=== PATIENT | male | born 1965 | race African-American/Black ===

== ENCOUNTER 2018-08-18 09:28 | Day surgery (SDC) | payer BC, OTHER ==
[2018-08-17 12:43] VITALS: BMI 33.6
[~2018-08-18 09:28] MED LIST: LACTATED RINGERS 1,000 ML IV SCH; LIDOCAINE 1% 20 ML VIAL (10MG/ML) FOR IV START INTRADERMA PRN
[2018-08-18 09:48] VITALS: RESP 16; TEMP 98.2
[2018-08-18] MEDS ORDERED: LIDOCAINE 1% INJ 10MG/ML (20 ML MDV) ONE (10:54)
[2018-08-18] MEDS ORDERED: PROPOFOL 10 MG/ML 20 ML VIAL IV ONE (10:54)
--- NOTE | 2018-08-18 11:00 | P.GSHP ---
History of Present Illness H&P Date: 08/18/18 Chief Complaint: Screening colonoscopy This a 53-year-old male referred from Dr. Alvaro Stapleton. Patient presents today for screening colonoscopy. He denies a significant GI complaints. Past Medical History Past Medical History: Hypertension Additional Past Medical History / Comment(s): anemia History of Any Multi-Drug Resistant Organisms: None Reported Past Surgical History: No Surgical Hx Reported Past Anesthesia/Blood Transfusion Reactions: No Reported Reaction Additional Past Anesthesia/Blood Transfusion Reaction / Comment(s): has never had anesthesia Smoking Status: Never smoker - Past Family History Mother Family Medical History: No Reported History Medications and Allergies Home Medications Medication Instructions Recorded Confirmed Type Aspirin [Adult Low Dose Aspirin EC] 81 mg PO DAILY 05/01/18 08/18/18 History Losartan [Cozaar] 100 mg PO HS 05/01/18 08/17/18 History amLODIPine BESYLATE [Norvasc] 10 mg PO HS 05/01/18 08/17/18 History Allergies Allergy/AdvReac Type Severity Reaction Status Date / Time Penicillins Allergy Anaphylaxis Verified 08/18/18 09:43 Surgical - Exam Vital Signs Temp Pulse Resp BP Pulse Ox 98.2 F 104 H 16 139/81 99 08/18/18 09:47 08/18/18 09:47 08/18/18 09:47 08/18/18 09:47 08/18/18 09:47 - General well developed, well nourished, no distress - Eyes PERRL - ENT normal pinna - Neck no masses - Respiratory normal expansion - Cardiovascular Rhythm: regular - Abdomen Abdomen: soft, non tender Assessment and Plan Assessment: We'll perform screening colonoscopy.
--- NOTE | 2018-08-18 11:09 | P.OP ---
Date of Procedure: 08/18/18 Preoperative Diagnosis: Screening colonoscopy Postoperative Diagnosis: Severe internal and external hemorrhoids Procedure(s) Performed: Colonoscopy Anesthesia: MAC Surgeon: [place] Pathology: none sent Condition: stable Disposition: PACU Description of Procedure: The patient's placed on the endoscopy table in the lateral position. He received IV sedation. Digital rectal exam was performed which revealed significant internal and external hemorrhoids. There are prolapsed external and internal hemorrhoids. The prostate was symmetric without nodules. The flexible colonoscope was then placed patient anus and passed throughout the entire colon. The ileocecal valve visualized. The cecum, ascending and transverse colon appeared normal. The descending and sigmoid colon appeared normal. Scope was then brought through the rectum and this was normal. Scope was withdrawn through the anus and significant internal and external hemorrhoids are noted again. Scope was withdrawn for patient.
[2018-08-18 11:45] VITALS: BP 131/85; PULSE 83
== END 2018-08-18 11:58 | disposition home or self-care (01) ==
LOC: ORWHC2ENDO 09:28
PROVIDERS: ATTEND Surgery
DX: Z12.11 Encounter for screening for malignant neoplasm of colon (principal); I10 Essential (primary) hypertension; K64.4 Residual hemorrhoidal skin tags; K64.8 Other hemorrhoids; Z79.82 Long term (current) use of aspirin; Z88.0 Allergy status to penicillin; Z79.899 Other long term (current) drug therapy
CPT/HCPCS: J2001; J2704; G0121